=== PATIENT | male | born 1975 | race Caucasian/White ===

== ENCOUNTER 2018-06-14 10:14 | Day surgery (SDC) | payer BC ==
[~2018-06-14] VITALS: Ht 177.8 cm; Wt 68.0 kg
[2018-06-14] VITALS (9 sets, daily range): BP systolic 114–136; BP diastolic 64–86
[2018-06-14] MEDS ORDERED: Bupivacaine w/Epi 0.25% 30ml Vial INJ ONE (10:20)
[2018-06-14] MEDS ORDERED: EPINEPHrine 1mg/1ml Amp ONE (10:20)
[2018-06-14] MEDS ORDERED: VENTOLIN HFA18 GM INH (11:05)
[2018-06-14] MEDS ORDERED: ADVAIR 500-501 EACH INH (11:05)
[2018-06-14] MEDS ORDERED: CELEBREX200 MG ORAL (11:05)
[2018-06-14] MEDS ORDERED: LR 1000ml 1,000 ML IVLG SCH (11:20)
--- NOTE | 2018-06-14 11:20 | Anethesia Preoperative Eval ---
Anesthesia Pre-op PMH/ROS General Date of Evaluation: Jun 14, 2018 Anesthesiologist: Ashok ASA Score: ASA 2 Mallampati Score Class I : Soft palate, uvula, fauces, pillars visible Class II: Soft palate, uvula, fauces visible Class III: Soft palate, base of uvula visible Class IV: Only hard plate visible Mallampati Classification: Class II Surgeon: Ron Diagnosis: Right knee torn medial meniscus Surgical Procedure: Right knee arthroscopy, medial meniscectomy Anesthesia History: none Family History: no anesthesia problems Allergies: Coded Allergies: No Known Allergies (Unverified , 06/14/18) Medications: see eMAR Patient NPO?: Yes NPO Date: Jun 13, 2018 NPO Time: 22:00 Past Medical History Cardiovascular: Denies: HTN, CAD, NE, valve dz, arrhythmia, other Pulmonary: Reports: asthma; Denies: COPD, BURAK, other Gastrointestinal/Genitourinary: Denies: GERD, CRI, ESRD, other Neurologic/Psychiatric: Denies: dementia, CVA, depression/anxiety, TIA, other Endocrine: Denies: DM, hypothyroidism, steroids, other HEENT: Denies: cataract (L), cataract (R), glaucoma, [place] DEE-NI' (L), [place] DEE-NI' (R), other Hematology/Immune: Denies: anemia, DVT, bleeding disorder, other Musculoskeletal/Integumentary: Denies: OA, RA, DJD, DDD, edema, other PSxH Narrative: Denies Anesthesia Pre-op Phys. Exam Physician Exam Last Vital Signs Date Time Temp Pulse Resp B/P (MAP) Pulse Ox O2 Delivery O2 Flow Rate FiO2 06/14/18 11:10 97.9 80 20 114/64 99 Room Air Constitutional: NAD Cardiovascular: RRR Respiratory: CTA Airway Exam Mallampati Score: Class II MO: full ROM: full Teeth: intact Anesthesia Pre-op A/P Labs see chart Risk Assessment & Plan Assessment: ASA II Plan: GA Status Change Before Surgery: No Pre-Antibiotics Drug: Ancef 1g Given Within 1 Hr of Incision: Yes Maria Antonia Nicole MD Jun 14, 2018 11:20
[2018-06-14] MEDS ORDERED: LORazepam Inj 2mg/ml 1ml IV PRN (11:30)
[2018-06-14] MEDS ORDERED: DiphenhydrAMINE 50mg/ml Inj IVP PRN (11:30)
[2018-06-14] MEDS ORDERED: Midazolam 2mg/2ml Inj IVP PRN (11:30)
[2018-06-14] MEDS ORDERED: Hydromorphone 0.5mg/0.5ml inj IVP PRN (11:30)
[2018-06-14] MEDS ORDERED: fentaNYL 100 mcg/2 mL IV PRN (11:30)
[2018-06-14] MEDS ORDERED: LR 1000ml ONE (12:00)
[2018-06-14] MEDS ORDERED: NS Irrig 4000ml IRRIG ONE ×4 (12:00→13:00)
[2018-06-14] MEDS ORDERED: Ketorolac 30mg Inj ONE (12:08)
--- NOTE | 2018-06-14 12:26 | Pre-Procedure Note/Attestation ---
Pre-Procedure Note/Attestation Complete Prior to Procedure Planned Procedure: right Procedure Narrative: Right knee arthroscopy with partial menisectomy Indications for Procedure Pre-Operative Diagnosis: Right knee meniscus tear Attestation I attest that I discussed the nature of the procedure; its benefits; risks and complications; and alternatives (and the risks and benefits of such alternatives ), prior to the procedure, with the patient (or the patient's legal inbound sales representative). I attest that, if there was a reasonable possibility of needing a blood transfusion, the patient (or the patient's legal inbound sales representative) was given the [facility] standardized written summary, pursuant to the [place] Blood Safety Act ([place] Health and Safety Code # 1645, as amended). I attest that I re-evaluated the patient just prior to the surgery and that there has been no change in the patient's H&P, except as documented below: Matt Velasquez MD Jun 14, 2018 12:26
[2018-06-14] MEDS ORDERED: Midazolam 2mg/2ml Inj ONE (12:29)
[2018-06-14] MEDS ORDERED: Propofol 200mg/20ml IV ONE (12:29)
[2018-06-14] MEDS ORDERED: fentaNYL 100 mcg/2 mL IV ONE (12:29)
[2018-06-14] MEDS ORDERED: Lidocaine 1% MPF 10mg/ml 5ml ONE (12:29)
[2018-06-14] MEDS ORDERED: SUMAtriptan 6mg/0.5ml Inj SUBQ ONE (13:00)
[2018-06-14] MEDS ORDERED: EPINEPHrine 1mg/1ml Amp IV ONE (13:00)
[2018-06-14] MEDS ORDERED: Meperidine 50mg/ml Inj(FOR RIGORS ONLY) ONE (13:45)
--- NOTE | 2018-06-14 13:51 | 48 Hour Post Anesthesia Eval ---
Post Anesthesia Evaluation Procedure: Right knee arthrosocpy Date of Evaluation: Jun 14, 2018 Airway: patent Nausea: No Vomiting: No Pain Intensity: 0 Hydration Status: adequate Cardiopulmonary Status: at baseline Mental Status/LOC: patient returned to baseline Post-Anesthesia Complications: 0 Follow-up care needed: ready to discharge Maria Antonia Nicole MD Jun 14, 2018 13:51
--- NOTE | 2018-06-14 13:51 | Immediate Post-Op Evaluation ---
Immediate Post-Op Evalulation Immediate Post-Op Evalulation Procedure: Right knee arthrosocpy Date of Evaluation: Jun 14, 2018 Time of Evaluation: 13:52 IV Fluids: 800 Blood Products: 0 Estimated Blood Loss: min Urinary Output: 0 Blood Pressure Systolic: 130 Blood Pressure Diastolic: 65 Pulse Rate: 99 Respiratory Rate: 18 O2 Sat by Pulse Oximetry: 100 Temperature (Fahrenheit): 97.8 Pain Score (1-10): 0 Nausea: No Vomiting: No Complications 0 Patient Status: awake, reacts, patent, none Hydration Status: adequate Drug: Ancef 1g Given Within 1 Hr of Incision: Yes Maria Antonia Nicole MD Jun 14, 2018 13:51
[2018-06-14] MEDS ORDERED: Meperidine 50mg/ml Inj(FOR RIGORS ONLY) IVP ONE (14:00)
--- NOTE | 2018-06-14 17:30 | Operative Note - Dictated ---
DATE OF OPERATION: 06/14/2018 SURGEON: Matt Velasquez M.D. PHYSICIANS ASSISTANT: None. ANESTHESIA: General plus local. COMPLICATIONS: None. ANTIBIOTICS: Ancef. PREOPERATIVE DIAGNOSES: Right knee: 1. Lateral compartment chondrosis. 2. Multiple loose bodies. 3. Complex macerated tear, lateral meniscus. POSTOPERATIVE DIAGNOSES: Right knee: 1. Lateral compartment chondrosis. 2. Multiple loose bodies. 3. Complex macerated tear, lateral meniscus. 4. Medial plica. OPERATIONS PERFORMED: Right knee arthroscopy with: 1. Partial lateral meniscectomy. 2. Lateral compartment chondroplasty. 3. Multiple loose body removal. 4. Medial gutter plica resection. BACKGROUND: The patient had long-standing right knee pain refractory to nonoperative management. All risks, benefits, and alternatives to surgical intervention were discussed in great detail. Risks included, but were not limited to, bleeding, infection, neurovascular injury, need for additional surgical intervention, failure of pain relief, arthrofibrosis, complications of anesthesia, blood clots, stroke, heart attack, and potentially . He understood these risks, amongst others, and consent was signed. PROCEDURE IN DETAIL: The patient was brought to the operating room and placed supine on the operating table. The right knee was correctly verified for surgical site and prepped and draped in standard sterile fashion. Exam under anesthesia revealed no laxity, symmetric range of motion with the contralateral side, and no effusion. Anterolateral and anteromedial portals were marked and injected with 20 mL of 0.25% Marcaine with epinephrine. A diagnostic arthroscopy was undertaken. It revealed the followin. Normal suprapatellar pouch. 2. Normal patellofemoral articulation. 3. Normal lateral gutter. 4. Plica medial gutter. 5. Normal medial compartment. 6. Normal medial meniscus. 7. Normal ACL. 8. Normal PCL. 9. Multiple loose bodies, lateral compartment. 10. Diffuse grade 2/3 chondrosis, lateral compartment. 11. Large complex macerated tear, posterior and middle horn extending to the junction of the anterior horn. In the lateral compartment, chondroplasty was performed using a 3.5 mm shaver. Loose bodies were removed using a Tissue Grabber as well as the shaver. Using an up biter, backbiter, left biter, and straight biter, the lateral meniscus tear was resected to a stable border. In front of the popliteus tendon, it was exceptionally thinned because of the tear and the remnants were debrided. The remaining of the lateral meniscus was tested with a probe and found to be stable after resection. In the medial compartment, the plica was resected using a shaver and backbiter. All fluid and debris were evacuated from the knee. A 10 mL of 0.25% Marcaine with epinephrine were injected. The wounds were copiously irrigated and reapproximated using 4-0 Monocryl in a subcuticular fashion. Steri-Strips were used over Mastisol. Dry sterile dressing was applied. A compressive stocking was fitted. There were no complications. I attest that I performed the entire operation. He was then transferred to recovery in good condition. Matt Velasquez M.D. DR: LONNY JOB#: [id number] CC:
== END 2018-06-14 15:10 | disposition home or self-care (01) ==
LOC: SUR 10:14
DX: S83.271A Complex tear of lateral meniscus, current injury, right knee, initial encounter (principal); M67.51 Plica syndrome, right knee; M23.41 Loose body in knee, right knee
CPT/HCPCS: 29881; J0171; J0690; J1170; J1885; J2175; J2250; J2405; J2704; J3010; J3030; 94003; 94150